=== PATIENT | male | born 1995 | race African-American/Black ===

== ENCOUNTER 2019-10-27 17:15 | Emergency (ER) | payer OTHER ==
[~2019-10-27] VITALS: Ht 182.9 cm; Wt 97.5 kg
[2019-10-27] MEDS ORDERED: ERYTHROMYCIN E3.5 G3 OPHTHALMIC (18:03)
[2019-10-27 18:07] VITALS: BP 136/60
== END 2019-10-27 18:07 | disposition home or self-care (01) ==
LOC: ER 17:15
DX: H10.89 Other conjunctivitis (principal)